=== PATIENT | male | born 1975 | race African-American/Black ===

== ENCOUNTER 2016-08-05 20:41 | Emergency (ER) | payer MEDICARE, MEDICAID, OTHER ==
[~2016-08-05 20:41] MED LIST: AMLO5TAB22 PO; DEPA500T PO; FERR324T4 PO; HALO10 PO; PHEN100 PO; SERO300T PO; SYNT75TA PO; TOPR50TA PO; ZYPR15TA PO
[2016-08-05 21:02] VITALS: BP 147/86; PULSE 99; RESP 18; TEMP 97.6; O2SAT 97
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
[2016-08-05 21:57] LABS: AUTOMATED NEUTROPHIL # 3.9 TH/MM3 (1.8-7.7); BASOPHIL % 0.6 % (0.0-2.0); EOSINOPHIL % 0.5 % (0.0-4.0); HEMATOCRIT 35.8 % (39.0-51.0); HEMO FLAGS DIFF FINAL; LYMPH % 17.9 % (9.0-44.0); MEAN CELL VOLUME 86.8 FL (80.0-100.0); MEAN CORPUSCULAR HEMOGLOBIN 30.1 PG (27.0-34.0); MEAN CORPUSCULAR HGB CONC 34.7 % (32.0-36.0); MONO % 12.2 % (0.0-8.0); NEUT % 68.8 % (16.0-70.0); PLATELET COUNT 188 TH/MM3 (150-450); RED BLOOD COUNT 4.12 MIL/MM3 (4.50-5.90); RED CELL DISTRIBUTION WIDTH 13.7 % (11.6-17.2); WHITE BLOOD COUNT 5.7 TH/MM3 (4.0-11.0)
[2016-08-05 22:05] LABS: ANION GAP 8 MEQ/L (5-15); AST (GOT) 18 U/L (15-37); BICARBONATE 25.6 MEQ/L (21.0-32.0); BLOOD UREA NITROGEN 12 MG/DL (7-18); CHLORIDE 106 MEQ/L (98-107); GLOMERULAR FILTRATION RATE 95 ML/MIN (>89); POTASSIUM 3.7 MEQ/L (3.5-5.1); SODIUM (NA) 140 MEQ/L (136-145)
[2016-08-05 22:10] LABS: ALKALINE PHOSPHATASE 56 U/L (45-117); ALT (GPT) 11 U/L (12-78); TOTAL BILIRUBIN ADULT 0.4 MG/DL (0.2-1.0)
[2016-08-05 22:12] LABS: ACETAMINOPHEN LESS THAN 2.0 MCG/ML (10.0-30.0)
[2016-08-05 22:18] VITALS: BP 129/77; PULSE 98; RESP 19; O2SAT 97
[2016-08-05 22:45] LABS: BLOOD, URINE NEG (NEG); GLUCOSE,URINE NEG (NEG); KETONE, URINE NEG (NEG); NITRITE,URINE NEG (NEG); URINE COLOR YELLOW (YELLW/STRAW)
[2016-08-05] MEDS ORDERED: PHENYTOIN SODIUM 100 MG CAP PO ONE (22:45)
[2016-08-05] MEDS ORDERED: DIVALPROEX DR 500 MG TABEC PO ONE (22:45)
[2016-08-05] MEDS ORDERED: QUEtiapine FUMARATE 300 MG TAB PO ONE (22:45)
[2016-08-05] MEDS ORDERED: HALOPERIDOL 10 MG TAB PO ONE (22:45)
[2016-08-05 22:46] LABS: AMPHETAMINE, URINE NEG (NEG); BARBITURATES, URINE NEG (NEG); COCAINE, URINE NEG (NEG)
[2016-08-05] MEDS ORDERED: QUET1TAB9 PO (22:47)
[2016-08-05] MEDS ORDERED: OLAN10TA PO (22:47)
[2016-08-05] MEDS ORDERED: BENZ2TAB PO (22:47)
[2016-08-05 22:52] LABS: COMMENT (UR) CULT NOT INDICATED; CULTURE IF INDICATED CULT NOT INDICATED
[2016-08-06 02:26] VITALS: BP 116/56; PULSE 109; RESP 18; O2SAT 98
[2016-08-06 06:44] VITALS: BP 118/71; PULSE 76; RESP 18; O2SAT 99
[2016-08-06 10:19] VITALS: BP 123/70; PULSE 112; RESP 18; O2SAT 98
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
[2016-08-06 14:00] VITALS: BP 138/67; PULSE 107; RESP 18
== END 2016-08-06 20:12 | disposition home or self-care (01) ==
LOC: NEPJ 20:41
DX: F20.9 Schizophrenia, unspecified (principal); F70 Mild intellectual disabilities; F41.9 Anxiety disorder, unspecified
CPT/HCPCS: 80053; 80164; 80185; 80307; 81001; 85025; 99283

== ENCOUNTER 2018-01-23 17:55 | Inpatient (IN) ==
--- NOTE | 2018-01-23 21:50 | ED ---
HPI General Chief Complaint: Psychiatric Symptoms Stated Complaint: psych eval Time Seen by Provider: 01/23/18 21:40 Source: patient Mode of arrival: ambulatory Limitations: no limitations History of Present Illness HPI Narrative: 42-year-old male requesting to see a psychiatrist for medication adjustment. Patient has history of schizophrenia and on medication. Patient states that he needs his medication to be adjusted. Patient denies any headache. Patient denies any chest pain or shortness of breath. Patient denies abdominal pain. Patient denies any focal weakness or numbness of the extremity. Patient denies any alcohol or drug abuse. Onset (ago): day(s) Duration: constant History of same: Yes Relieving factors: none Exacerbating factors: none Associated psychiatric symptoms: Reports none Associated symptoms: Reports denies other symptoms Treatments prior to arrival: Reports none Related Data Previous Rx's Medication Instructions Recorded benztropine 2 mg PO HS #30 tab 01/29/18 divalproex [Depakote ER] 1,000 mg PO BID #120 tab 01/29/18 haloperidol 10 mg PO BID #60 tab 01/29/18 olanzapine 15 mg PO BID #60 tab 01/29/18 quetiapine [Seroquel XR] 200 mg PO DAILY #30 tab 01/29/18 trazodone 100 mg PO HS #30 tab 01/29/18 Allergies Allergy/AdvReac Type Severity Reaction Status Date / Time No Known Allergies Uncoded 05/03/09 19:34 Review of Systems ROS: all other systems reviewed are negative PMFSH History History Provided By: Patient Social History Social History Substance History: No History of Abuse Second Hand Smoke Exposure: No Smoking Status: Never smoker How Often Do You Have a Drink Containing Alcohol: Never Recent Travel in [facility] within the Last 8 Weeks: No Recent Out of Country Travel within the Last 8 Weeks: No Exam Narrative Exam Narrative: GENERAL: Well-nourished, well-developed patient. SKIN: Focused skin assessment warm/dry. HEAD: Normocephalic. EYES: No scleral icterus. No injection or drainage. NECK: Supple, trachea midline. No JVD or lymphadenopathy. CARDIOVASCULAR: Regular rate and rhythm without murmurs, gallops, or rubs. RESPIRATORY: Breath sounds equal bilaterally. No accessory muscle use. GASTROINTESTINAL: Abdomen soft, non-tender, nondistended. MUSCULOSKELETAL: No cyanosis, or edema. BACK: Nontender without obvious deformity. No CVA tenderness. Neurologic exam: Patient is awake and alert oriented to place and person. Patient moves all extremity well. No obvious focal neurologic deficit. Course Initial Documented Vital Signs Temperature 97.8 F 01/23/18 18:05 Pulse Rate 100 H 01/23/18 18:05 Respiratory Rate 18 01/23/18 18:05 Blood Pressure 168/95 H 01/23/18 18:05 Pulse Oximetry 99 01/23/18 18:05 Last Documented Vital Signs Temperature 98.5 F 01/30/18 06:00 Pulse Rate 77 01/30/18 06:00 Respiratory Rate 15 01/30/18 06:00 Blood Pressure 112/58 L 01/30/18 06:00 Pulse Oximetry 98 01/30/18 06:00 Medical Decision Making MDM Narrative Medical decision making narrative: 42-year-old male requesting to see psychiatrist for medication adjustment. History of schizophrenia on medication. 23:25 PM. Patient is medically cleared for psychiatric evaluation. Medical Screen Exam Complete: Yes Emergency Medical Condition: Yes Differential Diagnosis Differential Diagnosis: Differential diagnosis including schizophrenia. Lab Data Lab results reviewed: Yes I reviewed the patient's lab results. Result diagrams: 01/23/18 20:15 01/25/18 07:39 Lab Results 01/23/18 01/23/18 01/24/18 Range/Units 20:15 20:15 06:00 WBC 4.7 (4.0-11.0) th/mm3 RBC 4.31 L (4.50-5.90) mil/mm3 Hgb 13.4 (13.0-17.0) gm/dL Hct 40.0 (39.0-51.0) % MCV 92.7 (80.0-100.0) fL MCH 31.0 (27.0-34.0) pg MCHC 33.4 (32.0-36.0) % RDW 13.4 (11.6-17.2) % Plt Count 145 L (150-450) th/mm3 MPV 9.2 (7.0-11.0) fL Neut % (Auto) 50.7 (16.0-70.0) % Lymph % (Auto) 37.8 (9.0-44.0) % [place] % (Auto) 9.4 H (0.0-8.0) % Eos % (Auto) 1.8 (0.0-4.0) % Baso % (Auto) 0.3 (0.0-2.0) % Neut # (Auto) 2.4 (1.8-7.7) th/mm3 Lymph # (Auto) 1.8 (1.0-4.8) th/mm3 [place] # (Auto) 0.4 (0.0-0.9) th/mm3 Eos # (Auto) 0.1 (0.0-0.4) th/mm3 Baso # (Auto) 0.0 (0.0-0.2) th/mm3 WBC Differential . Differential Comment Auto diff final Sodium 144 (136-145) meq/L Potassium 4.0 (3.5-5.1) meq/L Chloride 107 (98-107) meq/L Carbon Dioxide 29.8 (21.0-32.0) meq/L Anion Gap 7 (5-15) meq/L BUN 15 (7-18) mg/dL Creatinine 1.13 (0.60-1.30) mg/dL Estimated GFR 86 L (>89) mL/min Random Glucose 65 L (74-106) mg/dL Hemoglobin A1c (4.3-6.0) % Calcium 8.5 (8.5-10.1) mg/dL Total Bilirubin 0.3 (0.2-1.0) mg/dL AST 14 L (15-37) U/L ALT 10 L (12-78) U/L Alkaline Phosphatase 49 (45-117) U/L Total Protein 8.2 (6.4-8.2) g/dL Albumin 3.8 (3.4-5.0) g/dL Triglycerides (42-150) mg/dL Cholesterol (120-200) mg/dL LDL Cholesterol, Calc (0-99) mg/dL HDL Cholesterol (40.0-60.0) mg/dL Cholesterol/HDL Ratio Ratio TSH 3.030 (0.358-3.740) uIU/mL Urine Opiates Screen Neg (Neg) Ur Barbiturates Screen Neg (Neg) Valproic Acid (50-100) mcg/mL Ur Amphetamines Screen Neg (Neg) U Benzodiazepines Scrn Neg (Neg) Urine Cocaine Screen Neg (Neg) U Cannabinoids Screen Neg (Neg) 01/25/18 01/25/18 01/28/18 Range/Units 07:39 07:39 08:15 WBC (4.0-11.0) th/mm3 RBC (4.50-5.90) mil/mm3 Hgb (13.0-17.0) gm/dL Hct (39.0-51.0) % MCV (80.0-100.0) fL MCH (27.0-34.0) pg MCHC (32.0-36.0) % RDW (11.6-17.2) % Plt Count (150-450) th/mm3 MPV (7.0-11.0) fL Neut % (Auto) (16.0-70.0) % Lymph % (Auto) (9.0-44.0) % [place] % (Auto) (0.0-8.0) % Eos % (Auto) (0.0-4.0) % Baso % (Auto) (0.0-2.0) % Neut # (Auto) (1.8-7.7) th/mm3 Lymph # (Auto) (1.0-4.8) th/mm3 [place] # (Auto) (0.0-0.9) th/mm3 Eos # (Auto) (0.0-0.4) th/mm3 Baso # (Auto) (0.0-0.2) th/mm3 WBC Differential Differential Comment Sodium 140 (136-145) meq/L Potassium 4.2 (3.5-5.1) meq/L Chloride 104 (98-107) meq/L Carbon Dioxide 28.8 (21.0-32.0) meq/L Anion Gap 7 (5-15) meq/L BUN 14 (7-18) mg/dL Creatinine 0.98 (0.60-1.30) mg/dL Estimated GFR Greater than 89 (>89) mL/min Random Glucose 83 (74-106) mg/dL Hemoglobin A1c 5.2 (4.3-6.0) % Calcium 8.8 (8.5-10.1) mg/dL Total Bilirubin (0.2-1.0) mg/dL AST (15-37) U/L ALT (12-78) U/L Alkaline Phosphatase (45-117) U/L Total Protein (6.4-8.2) g/dL Albumin (3.4-5.0) g/dL Triglycerides 72 (42-150) mg/dL Cholesterol 134 (120-200) mg/dL LDL Cholesterol, Calc 60 (0-99) mg/dL HDL Cholesterol 59.4 (40.0-60.0) mg/dL Cholesterol/HDL Ratio 2.25 Ratio TSH (0.358-3.740) uIU/mL Urine Opiates Screen (Neg) Ur Barbiturates Screen (Neg) Valproic Acid 89 138 H* (50-100) mcg/mL Ur Amphetamines Screen (Neg) U Benzodiazepines Scrn (Neg) Urine Cocaine Screen (Neg) U Cannabinoids Screen (Neg) Discharge Plan Discharge Disposition Patient Disposition: 01 Discharge Home Discharge Condition Condition: Fair Discharge Order Discharge Orders: Discharge Order (Routine); Ordered 02/10/18 Ordered By: Toney Gómez Discharge Details Anticipated Discharge Date: 01/29/18 Physicians Team ED Provider: Toney Gómez Primary Care Provider: Primary Care Coleen Kirkpatrick Attending Provider: Asa Arboleda Status ED Status: Left Department Discharge Information Discharge Date/Time: 01/24/18 23:36
[2018-01-23 22:35] LABS: Baso % (Auto) 0.3 % (0.0-2.0); Eos # (Auto) 0.1 th/mm3 (0.0-0.4); Eos % (Auto) 1.8 % (0.0-4.0); Hemoglobin 13.4 gm/dL (13.0-17.0); Lymph # (Auto) 1.8 th/mm3 (1.0-4.8); Lymph % (Auto) 37.8 % (9.0-44.0); Mean Corpuscular HGB Conc 33.4 % (32.0-36.0); Mean Corpuscular Volume 92.7 fL (80.0-100.0); Mean Platelet Volume 9.2 fL (7.0-11.0); Mono # (Auto) 0.4 th/mm3 (0.0-0.9); Mono % (Auto) 9.4 % (0.0-8.0); Neut # (Auto) 2.4 th/mm3 (1.8-7.7); Neut % (Auto) 50.7 % (16.0-70.0); Platelet Count 145 th/mm3 (150-450); Red Blood Count 4.31 mil/mm3 (4.50-5.90); Red Cell Distribution Width 13.4 % (11.6-17.2); White Blood Count 4.7 th/mm3 (4.0-11.0)
[2018-01-23 22:51] LABS: Alanine Aminotransferase 10 U/L (12-78); Albumin 3.8 g/dL (3.4-5.0); Anion Gap 7 meq/L (5-15); Aspartate Aminotransferase 14 U/L (15-37); Blood Urea Nitrogen 15 mg/dL (7-18); Calcium 8.5 mg/dL (8.5-10.1); Carbon Dioxide 29.8 meq/L (21.0-32.0); Chloride 107 meq/L (98-107); Glomerular Filtration Rate 86 mL/min (>89); Glucose,Random 65 mg/dL (74-106); Sodium 144 meq/L (136-145)
[2018-01-23 23:01] LABS: Alkaline Phosphatase 49 U/L (45-117); Total Protein 8.2 g/dL (6.4-8.2)
[2018-01-24 06:20] LABS: Amphetamine Screen,Urine Neg (Neg); Barbiturate Screen,Urine Neg (Neg); Cannabinoid Screen,Urine Neg (Neg); Cocaine Screen,Urine Neg (Neg)
[2018-01-24 06:25] LABS: Opiate Screen,Urine Neg (Neg)
[2018-01-24] MEDS ORDERED: Acetaminophen 325 MG Tablet PO PRN (21:37)
[2018-01-24] MEDS ORDERED: Aluminum/Magnesium/Simethacone Susp 30 ML UDC PO PRN (21:37)
[2018-01-24] MEDS ORDERED: LORazepam 1 MG Tablet PO PRN (21:37)
[2018-01-24] MEDS ORDERED: QUETIAPINE 300 MG PO SCH (23:00)
[2018-01-24] MEDS ORDERED: traZODone 100 MG Tablet PO SCH (23:00)
[2018-01-24] MEDS: Divalproex 500 MG ER Tablet PO SCH (23:31)
[2018-01-24] MEDS: Benztropine 2 MG Tablet PO SCH (23:31)
[2018-01-24] MEDS: OLANZapine 15 MG Tablet PO SCH (23:32)
[2018-01-25 08:24] LABS: Cholesterol 134 mg/dL (120-200)
[2018-01-25 08:28] LABS: Chol/HDL Ratio 2.25 Ratio; HDL Cholesterol 59.4 mg/dL (40.0-60.0); LDL Cholesterol,Calculated 60 mg/dL (0-99); Triglycerides 72 mg/dL (42-150); Valproic Acid 89 mcg/mL (50-100)
[2018-01-25 08:36] LABS: Anion Gap 7 meq/L (5-15); Blood Urea Nitrogen 14 mg/dL (7-18); Calcium 8.8 mg/dL (8.5-10.1); Carbon Dioxide 28.8 meq/L (21.0-32.0); Chloride 104 meq/L (98-107); Glomerular Filtration Rate Greater Than 89 mL/min (>89); Glucose,Random 83 mg/dL (74-106); Potassium 4.2 meq/L (3.5-5.1); Sodium 140 meq/L (136-145)
--- NOTE | 2018-01-25 12:03 | P.HPPSY ---
Provisional Diagnosis Admission Date: January 24, 2018 21:07 [place] Schizophrenia chronic paranoid type Competence Certification of Person's Competence To Provide Express and Informed Consent I have personally examined Hasmukh Chacon, a person being served at [facility] on, January 25, 2018 1202. Express and informed consent means consent voluntarily given in writing, by a competent person, after sufficient explanation and disclosure of the subject matter involved to enable the person to make a knowing and willful decision without any element of force, fraud, deceit, duress, or other form of constraint or coercion. This person is 18 years of age or older, is not now known to be incompetent to consent to treatment with a guardian advocate, and does not have a health care surrogate or proxy currently making medical treatment decisions. I have found this person to be one of the following: []xxxx Competent to provide express and informed consent, as defined above, for voluntary admission to this facility and is competent to provide express and informed consent for treatment. He/she has the consistent capacity to make well reasoned, willful, and knowing decisions concerning his or her medical or mental health treatment. The person fully and consistently understands the purpose of the admission for examination/placement and is fully capable of personally exercising all rights assured under [place] Incompetent to provide express and informed consent to voluntary admission, and this is incompetent to provide express and informed consent to treatment. The person must be transferred to involuntary status and a petition for a guardian advocate filed with the Circuit Court. [] Refusing to provide express and informed consent to voluntary admission but is competent to provide express and informed consent for treatment. The person must be discharged or transferred to involuntary status. Form shall be completed within 24 hours of a person's arrival at the receiving facility and filed in the clinical record of each person: 1. Admitted on a voluntary basis 2. Permitted to provide express and informed consent to his/her own treatment 3. Allowed to transfer from involuntary to voluntary status 4. Prior to permitting a person to consent to his or her own treatment after having been previously found incompetent to consent to treatment. History of Present Illness Capacity: Has capacity History of Present Illness: Patient is a 42-year-old -Uk[place] male well known to us from multiple prior contacts. [facility] going back to the early 1999. In fact patient was seen by me in 2004. Patient comes today complaining of increased stress with his living situation and is desire to have his medications evaluated. Patient seen in the ED medically cleared urine toxicology negative Depakote blood level of 89 patient seen quietly in his room with nurse Margy and medical student Gael. Patient is alert oriented tall thin and slender clean and neat -Ukrainian white male he is calm cooperative is somewhat concrete and simple in his responses stating at this time he is living in a multigenerational situation with his great aunt's cousin and a few small children. It appears she has lived with his cousin before. It is because he was not looking for a new place for them to live. However patient has been getting into arguments with with his great aunt over the the programs being watched on TV. He feels that he is not being allowed to watch his programs. The 1 of his goals if going with the niece when an apartment is found is to get his own television. He has some childlike simplistic expectations of us being able to get him a TV. Patient denies voices or visions , denies suicidality homicidality. The times he appears to be responding to internal stimuli. Denies alcohol or drug use related to this. He states he has been compliant with his medications. Which is somewhat reflected in the Depakote blood level. He sees Dr. Amato through [facility] and says he has been compliant with medication and appointments. He also goes to the programming at [place] [facility] [place] Monday through Monday. And seems to enjoy that. Patient is on some degree of polypharmacy. Though with this patient's history of recidivism and chronic severe mental illness this regimen has been slowly developed over multiple prior contacts and hospitalizations. At this time patient does meet criteria for further inpatient psychiatric assessment on a voluntary basis. We will continue his medications no change at this time will be recheck his Depakote blood level over in a couple of days. Patient states she sleeps fairly well his appetite is good. Hopefully will be able to return him home to his family to follow up with [facility] - Inpatient Certification I certify that the inpatient services were ordered in accordance with Medicare regulations governing the order. This includes certification that hospital inpatient services are reasonable and necessary and in the case of services not specified as inpatient-only under 42 CFR 419.22(n), that they are appropriately provided as inpatient services in accordance to with the 2-midnight benchmark under 43 CFR 412.3(e) I certify that inpatient psychiatric hospital services are medically necessary. Evaluation and treatment and/or diagnostic testing are expected to improve the patient's condition. The patient needs on a daily basis, active treatment furnished directly by or requiring the supervision of inpatient psychiatric facility personnel. Estimated Total Length of Stay (Days): 5 Plans for Post Hospital Care: Home Review of Systems All other systems reviewed negative except as stated in [facility] - History History Provided By: Patient - Medical / Surgical Hx Neg / Unobtainable Surgical History: No Previous Surgery - Medical History Medical History: Medical History (Last Reviewed 01/25/18 @ 12:08 by Asa Arboleda MD) Autism Schizo-affective schizophrenia Schizophrenia - Social History I have reviewed the patient's Social History: Yes - Tobacco History Second Hand Smoke Exposure: No Smoking Status: Never smoker - Alcohol History How Often Do You Have a Drink Containing Alcohol: Never - Substance Use History Substance History: No History of Abuse - Travel History Recent Travel in the [facility] Within the Last 8 Weeks: No Recent Travel Out of the Country Within the Last 8 Weeks: No - Immunization History Tetanus Immunization: Unsure Hx Influenza Vaccine This Season: No Quality Measures - Psychiatric History Psychological trauma history: Patient denies Violence risk to others in the last 6 months: Low to moderate Violence risk to self in the last 6 months: Low to moderate - Substance Abuse History Drug or alcohol use in the past 12 months: Patient denies - Patient Strengths Patient's strengths (minimum of 2): Patient verbal able access healthcare is cooperative Medications and Allergies Active Medications: Active Medications Acetaminophen (Tylenol) 650 mg PO Q4H PRN PRN Reason: Pain 1-5 or Temp >101F Al Hydrox/Mg Hydrox/Simethicone (Mag-Al Plus Susp Liq) 30 ml PO Q6H PRN PRN Reason: DYSPEPSIA Al Hydroxide/Mg Hydroxide (Milk Of Magnesia Liq) 30 ml PO Q12H PRN PRN Reason: Mild Constipation Al Hydroxide/Mg Hydroxide (Milk Of Magnesia Liq) 30 ml PO Q12H PRN PRN Reason: Mild Constipation Benztropine Mesylate (Cogentin) 2 mg PO HS [facility] Last Admin: 01/24/18 23:31 Dose: 2 mg Diphenhydramine HCl (Benadryl) 50 mg PO HS PRN PRN Reason: INSOMNIA Divalproex Sodium (Depakote Er) 1,000 mg PO DAILY [facility] Divalproex Sodium (Depakote Er) 1,500 mg PO HS [facility] Last Admin: 01/24/18 23:31 Dose: 1,500 mg Divalproex Sodium (Depakote Er) 1,500 mg PO HS [facility] Haloperidol (Haldol) 10 mg PO BID [facility] Haloperidol (Haldol) 10 mg PO BID [facility] Hydroxyzine HCl (Atarax) 50 mg PO Q6H PRN PRN Reason: ANXIETY Nicotine (Habitrol 21 Mg Patch.24 Hr) 1 patch T-DERMAL DAILY [facility] Non-Formulary Medication (Benztropine) 2 mg PO HS [facility] Non-Formulary Medication (Depakote Er) 1,000 mg PO DAILY [facility] Non-Formulary Medication (Quetiapine) 200 mg PO DAILY [facility] Non-Formulary Medication (Quetiapine) 600 mg PO HS [facility] Olanzapine (Zyprexa) 15 mg PO BID [facility] Last Admin: 01/24/18 23:32 Dose: 15 mg Olanzapine (Zyprexa) 15 mg PO BID [facility] Patient Own Med- Quetiapine Sr 300 Mg Tablet 0 each PO HS [facility] Quetiapine Fumarate (Seroquel Xr) 200 mg PO DAILY [facility] Trazodone HCl (Desyrel) 100 mg PO HS [facility] Last Admin: 01/24/18 23:31 Dose: 100 mg Trazodone HCl (Desyrel) 100 mg PO HS [facility] Allergies Allergy/AdvReac Type Severity Reaction Status Date / Time No Known Allergies Uncoded 05/03/09 19:34 Home Medications Medication Instructions Recorded Confirmed Type Depakote ER 1,000 mg DAILY 01/24/18 01/24/18 History benztropine 2 mg PO HS 01/24/18 01/24/18 History divalproex [Depakote ER] 1,500 mg PO HS 01/24/18 01/24/18 History haloperidol 10 mg PO BID 01/24/18 01/24/18 History olanzapine [Zyprexa] 15 mg PO BID 01/24/18 01/24/18 History quetiapine [Seroquel XR] 200 mg PO DAILY 01/24/18 01/24/18 History quetiapine [Seroquel XR] 600 mg PO HS 01/24/18 01/24/18 History trazodone 100 mg PO HS 01/24/18 01/24/18 History Results - Labs CBC & Chem 7: 01/23/18 20:15 01/25/18 07:39 Labs: Laboratory Results - last 24 hr 01/25/18 07:39 Sodium 140 Potassium 4.2 Chloride 104 Carbon Dioxide 28.8 Anion Gap 7 BUN 14 Creatinine 0.98 Estimated GFR Greater than 89 Random Glucose 83 Calcium 8.8 Triglycerides 72 Cholesterol 134 LDL Cholesterol, Calc 60 HDL Cholesterol 59.4 Cholesterol/HDL Ratio 2.25 Valproic Acid 89 Exam Vital signs: Vital Signs 01/24/18 16:55 01/24/18 18:40 01/24/18 23:20 Temperature 98.0 F Pulse Rate 89 85 85 Respiratory Rate 20 20 16 Blood Pressure 164/88 H 151/87 H 125/80 Pulse Oximetry 100 100 100 01/24/18 23:27 01/25/18 06:00 Temperature 97.8 F 98.2 F Pulse Rate 93 H 87 Respiratory Rate 18 16 Blood Pressure 126/18 L 114/62 Pulse Oximetry 98 Intake & Output 01/24/18 01/25/18 01/25/18 18:59 06:59 18:59 Weight 86 kg Other: Weight On Admission 86 kg Narrative: Patient seen in his room he is in no acute distress, patient no respiratory distress, no complaints of chest pain or abdominal pain. Patient moving all 4 extremities without difficulty Mental Status Examination Appearance: Appropriate Consciousness: Alert Orientation: Person, Place, Date/Time Motor Activity: Normal gait Speech: Unremarkable (Somewhat childlike) Language: Adequate Fund of Knowledge: Adequate Attention and Concentration: Adequate (Poor) Memory: Impaired Mood: Other (Euthymic to mildly irritable) Affect: Other (Good range and intensity) Thought Content: Appropriate (Somewhat concrete) Hallucination Type: None (There appears to the use somewhat concrete and childlike) Delusion Type: None Suicidal Ideation: No Suicidal Plan: No Suicidal Intention: No Homicidal Ideation: No Homicidal Plan: No Homicidal Intention: No Insight: Poor Judgment: Poor Assessment and Plan - Plan Plan: Estimated LOS: [] days Patient is showing mild psychotic features though overall is calm and cooperative. Having little insight into his quality with his relationship with the various family members with whom he lives especially related television privileges and ownership Justification for Continued Inpatient Stay: At this time patient would decompensate a place to a lower level of care Discharge Planning: Probably to return home Request Healthcare Surrogate/Guardian Advocate?: No
[2018-01-25 12:22] LABS: Hemoglobin A1c 5.2 % (4.3-6.0)
[2018-01-25] MEDS: Divalproex 500 MG ER Tablet PO SCH ×2 (13:51→21:41)
[2018-01-25] MEDS: QUETIAPINE 50 MG PO SCH (13:51)
[2018-01-25] MEDS: OLANZapine 15 MG Tablet PO SCH ×2 (13:52→21:42)
[2018-01-25] MEDS ORDERED: QUETIAPINE 300 MG PO SCH (21:00)
[2018-01-25] MEDS ORDERED: BENZTROPINE 2 MG PO SCH (21:00)
[2018-01-25] MEDS ORDERED: OLANZapine 15 MG Tablet PO SCH (21:00)
[2018-01-25] MEDS ORDERED: QUETIAPINE 600 MG PO SCH (21:00)
[2018-01-25] MEDS ORDERED: Divalproex 500 MG ER Tablet PO SCH (21:00)
[2018-01-25] MEDS: traZODone 100 MG Tablet PO SCH (21:42)
[2018-01-25] MEDS: Benztropine 2 MG Tablet PO SCH (21:42)
[2018-01-26] MEDS ORDERED: DEPAKOTE 1000 MG PO SCH (09:00)
[2018-01-26] MEDS ORDERED: QUETIAPINE 200 MG PO SCH (09:00)
[2018-01-26] MEDS: Divalproex 500 MG ER Tablet PO SCH ×2 (10:07→21:32)
[2018-01-26] MEDS: OLANZapine 15 MG Tablet PO SCH ×2 (10:07→21:35)
[2018-01-26] MEDS: QUETIAPINE 50 MG PO SCH (10:07)
--- NOTE | 2018-01-26 10:21 | P.PNPSY ---
Subjective Remarks: Patient seen in day room with floor staff, patient is alert and oriented calm cooperative with me though at times somewhat childlike. This is talked with his grandmother. Chart reviewed. Patient compliant medication. He states his grandmother is willing to get him a TV. That makes him happy. Today he denies suicidality homicidality voice or visions. For now continue treatment Review of Systems All other systems reviewed negative except as stated in HPI Mental Status Examination Appearance: Appropriate Consciousness: Alert Orientation: Person, Place, Date/Time Motor Activity: Normal gait Speech: Unremarkable (Somewhat childlike) Language: Adequate Fund of Knowledge: Adequate Attention and Concentration: Adequate (Poor) Memory: Impaired Mood: Other (Euthymic to mildly irritable) Affect: Other (Good range and intensity) Thought Content: Appropriate (Somewhat concrete) Hallucination Type: None (There appears to the use somewhat concrete and childlike) Delusion Type: None Suicidal Ideation: No Suicidal Plan: No Suicidal Intention: No Homicidal Ideation: No Homicidal Plan: No Homicidal Intention: No Insight: Poor Judgment: Poor Assessment and Plan - Assessment (1) Paranoid type schizophrenia, chronic state Code(s): F20.0 - Paranoid schizophrenia Status: Acute - Plan Plan: Patient somewhat calmer and focused today x2 remained somewhat childlike. Compliant medication. For now continue treatment Justification for Continued Inpatient Stay: At this time patient may decompensate a place to a lower level of care Discharge Planning: Probable return home with family Request Healthcare Surrogate/Guardian Advocate?: No
[2018-01-26] MEDS: Benztropine 2 MG Tablet PO SCH (21:31)
[2018-01-26] MEDS: traZODone 100 MG Tablet PO SCH (21:34)
[2018-01-27] MEDS: QUETIAPINE 50 MG PO SCH (09:35)
[2018-01-27] MEDS: OLANZapine 15 MG Tablet PO SCH ×2 (09:35→21:41)
[2018-01-27] MEDS: Divalproex 500 MG ER Tablet PO SCH (09:35)
--- NOTE | 2018-01-27 14:58 | P.PNPSY ---
Subjective Remarks: Reviewed electronic medical records and discussed case with staff. Follow-up was conducted in the patient's room with LENNY Schultz present. He was found lying on the bed with the covers over his head sound asleep he woke to physical stimuli. His nurse reports he has been compliant with his medications and had no behavioral disturbances. He states that he feels "all right". States that he still tired. Reports that he is eating okay. Patient denies any complaints at this time. Mental Status Examination Appearance: Appropriate Consciousness: Alert Orientation: Person, Place, Date/Time Motor Activity: Normal gait Speech: Unremarkable (Somewhat childlike) Language: Adequate Fund of Knowledge: Adequate Attention and Concentration: Adequate (Poor) Memory: Impaired Mood: Other (Euthymic to mildly irritable) Affect: Other (Good range and intensity) Thought Content: Appropriate (Somewhat concrete) Hallucination Type: None (There appears to the use somewhat concrete and childlike) Delusion Type: None Suicidal Ideation: No Suicidal Plan: No Suicidal Intention: No Homicidal Ideation: No Homicidal Plan: No Homicidal Intention: No Insight: Poor Judgment: Poor Assessment and Plan - Assessment (1) Paranoid type schizophrenia, chronic state Code(s): F20.0 - Paranoid schizophrenia Status: Acute - Plan Plan: Patient will be reevaluated Monday by the attending psychiatrist. Continue with current treatment plan. Justification for Continued Inpatient Stay: Moving this patient to a less restrictive environment would likely result in decompensation. Request Healthcare Surrogate/Guardian Advocate?: No
[2018-01-27] MEDS: traZODone 100 MG Tablet PO SCH (21:40)
[2018-01-27] MEDS: Benztropine 2 MG Tablet PO SCH (21:41)
[2018-01-28] MEDS: Divalproex 500 MG ER Tablet PO SCH ×3 (01:57→21:12)
[2018-01-28] MEDS: QUETIAPINE 50 MG PO SCH (08:57)
[2018-01-28] MEDS: OLANZapine 15 MG Tablet PO SCH ×2 (08:58→21:13)
--- NOTE | 2018-01-28 13:05 | P.PNPSY ---
Subjective Remarks: Reviewed electronic medical records and discussed case with staff. Follow-up was conducted in dayroom. Patient is medication compliant. Nursing reports no behavioral concerns. Valporic Acid level is high at 138. Patient currently taking Depakote 1,000 mg daily and 1,500 mg qhs. Will decrease the Depakote by 500 mg at night and order a repeat Valporic Acid. Patient eating and sleeping well. Denies SI/HI. Review of Systems All other systems reviewed negative except as stated in HPI Mental Status Examination Appearance: Appropriate Consciousness: Alert Orientation: Person, Place, Date/Time Motor Activity: Normal gait Speech: Unremarkable (Somewhat childlike) Language: Adequate Fund of Knowledge: Adequate Attention and Concentration: Adequate (Poor) Memory: Impaired Mood: Other (Euthymic to mildly irritable) Affect: Other (Good range and intensity) Thought Content: Appropriate (Somewhat concrete) Hallucination Type: None (There appears to the use somewhat concrete and childlike) Delusion Type: None Suicidal Ideation: No Suicidal Plan: No Suicidal Intention: No Homicidal Ideation: No Homicidal Plan: No Homicidal Intention: No Insight: Poor Judgment: Poor Assessment and Plan - Assessment (1) Paranoid type schizophrenia, chronic state Code(s): F20.0 - Paranoid schizophrenia Status: Acute - Plan Plan: Patient will be reevaluated Monday by the attending psychiatrist. Continue with current treatment plan. Justification for Continued Inpatient Stay: Moving patient to a less restrictive environment may result in his decompensation. Request Healthcare Surrogate/Guardian Advocate?: No
[2018-01-28] MEDS: Benztropine 2 MG Tablet PO SCH (21:12)
[2018-01-28] MEDS: traZODone 100 MG Tablet PO SCH (21:13)
[2018-01-29] MEDS: QUETIAPINE 50 MG PO SCH (09:08)
[2018-01-29] MEDS: Divalproex 500 MG ER Tablet PO SCH ×2 (09:08→21:14)
[2018-01-29] MEDS: OLANZapine 15 MG Tablet PO SCH ×2 (09:09→21:14)
--- NOTE | 2018-01-29 12:07 | P.DSPSY ---
Psychiatry Discharge Summary Inpatient Psychiatric care?: Yes Advance Directives: No Mental Health Advance Directive: No Health Care Proxy: No - Admission Admission Date: January 24, 2018 21:07 - Admission Diagnosis (1) Paranoid type schizophrenia, chronic state Code(s): F20.0 - Paranoid schizophrenia Brief History: Patient is a 42-year-old -Monegasque male well known to us from multiple prior contacts. [facility] going back to the early 1999. In fact patient was seen by me in 2004. Patient comes today complaining of increased stress with his living situation and is desire to have his medications evaluated. Patient seen in the ED medically cleared urine toxicology negative Depakote blood level of 89 patient seen quietly in his room with nurse Margy and medical student Gael. Patient is alert oriented tall thin and slender clean and neat -[place]onegasque white male he is calm cooperative is somewhat concrete and simple in his responses stating at this time he is living in a multigenerational situation with his great aunt's cousin and a few small children. It appears she has lived with his cousin before. It is because he was not looking for a new place for them to live. However patient has been getting into arguments with with his great aunt over the the programs being watched on TV. He feels that he is not being allowed to watch his programs. The 1 of his goals if going with the niece when an apartment is found is to get his own television. He has some childlike simplistic expectations of us being able to get him a TV. Patient denies voices or visions , denies suicidality homicidality. The times he appears to be responding to internal stimuli. Denies alcohol or drug use related to this. He states he has been compliant with his medications. Which is somewhat reflected in the Depakote blood level. He sees Dr. Amato through [facility] and says he has been compliant with medication and appointments. He also goes to the programming at [place] [facility] [place] Monday through Monday. And seems to enjoy that. Patient is on some degree of polypharmacy. Though with this patient's history of recidivism and chronic severe mental illness this regimen has been slowly developed over multiple prior contacts and hospitalizations. At this time patient does meet criteria for further inpatient psychiatric assessment on a voluntary basis. We will continue his medications no change at this time will be recheck his Depakote blood level over in a couple of days. Patient states she sleeps fairly well his appetite is good. Hopefully will be able to return him home to his family to follow up with [facility] Tobacco Use In Past 30 Days: No How Often Do You Have a Drink Containing Alcohol: Never Hospital Course: Patient's hospital course was uneventful, he was no behavioral problems. His cognitive issues remain consistent though he also remained compliant with his medications. He denies suicidality homicidality he is vague about voices. He has had conversations with his family they are willing to discuss with him and his own TV for his bedroom. At this time patient is consistent in denying suicidality or homicidality. He is compliant with medications shows a willingness to continue compliance as an outpatient follow-up with Jeffrey Cristobal at [facility]. Thus I feel patient reached maximum benefit of this hospitalization. Will be discharged today with Rx times 1 month - Discharge Discharge Date: 01/29/18 - Discharge Diagnosis (1) Paranoid type schizophrenia, chronic state Diagnosis: Principal Code(s): F20.0 - Paranoid schizophrenia Status: Acute Discharge Disposition: Home - Discharge Instructions Discharge Diet: Regular Diet Activities You Can Perform: Regular- No Restrictions - Discharge Time > 30 minutes Mental Status Examination Appearance: Appropriate Consciousness: Alert Orientation: Person, Place, Date/Time Motor Activity: Normal gait Speech: Unremarkable (Somewhat childlike) Language: Adequate Fund of Knowledge: Adequate Attention and Concentration: Adequate (Poor) Memory: Impaired Mood: Other (Euthymic to mildly irritable) Affect: Other (Good range and intensity) Thought Content: Appropriate (Somewhat concrete) Hallucination Type: None (There appears to the use somewhat concrete and childlike) Delusion Type: None Suicidal Ideation: No Suicidal Plan: No Suicidal Intention: No Homicidal Ideation: No Homicidal Plan: No Homicidal Intention: No Insight: Poor Judgment: Poor Discharge/Advance Care Plan - Results Vital Signs: Last Vital Signs Temp 98.1 F 01/29/18 04:50 Pulse 73 01/29/18 04:50 Resp 16 01/29/18 04:50 BP 105/58 L 01/29/18 04:50 Pulse Ox 99 01/29/18 04:50 Lab Results: Laboratory Results Hemoglobin A1c 5.2 % (4.3-6.0) 01/25/18 07:39 Triglycerides 72 mg/dL (42-150) 01/25/18 07:39 Cholesterol 134 mg/dL (120-200) 01/25/18 07:39 LDL Cholesterol, Calc 60 mg/dL (0-99) 01/25/18 07:39 HDL Cholesterol 59.4 mg/dL (40.0-60.0) 01/25/18 07:39 TSH 3.030 uIU/mL (0.358-3.740) 01/23/18 20:15 Valproic Acid 138 mcg/mL (50-100) H* 01/28/18 08:15 Summary of Procedures: None done Pending Results: None - Medications Number of antipsychotic medications at discharge: 3 Appropriate use of more than 1 antipsychotic med: Doc plan:prev multi med use- monotherapy taper/cross-taper in progress - Discharge Care Plan Goals to Promote Your Health: * To prevent worsening of your condition and complications * To maintain your health at the optimal level Directions to Meet Your Goals: Take your medications as prescribed Follow your dietary instruction Follow activity as directed Keep your appointments as scheduled Take your immunizations and boosters as scheduled If your symptoms worsen call your PCP, if no PCP go to Urgent Care Center or Emergency Room For 07/11 questions related to your inpatient stay or results of tests pending at discharge, please contact Dr. Asa Arboleda MD at Smoking is Dangerous to Your Health. Avoid second hand smoking
--- NOTE | 2018-01-29 13:56 | P.TTN ---
- Patient Problems Problems: 1. Discharge planning 2. Medication compliance 3. Knowledge deficit 4. Lack of coping skills - Progress Toward Goals Provider Present: Dr. Kalyn Arboleda, Dr. Blanca Xiong Provider Input: Follow up at [facility] Discharge today 01/29/18 Nurse(s) Present: Mazin GALVEZ Nurse Input: 01/29/18: med Compliant, Treatment Cooperative. Psychiatric Counselors Present: Kevon Perkins Jr., [facility], Zee Noguera, [facility] Psychiatric Therapist Input: 01/29/18: Cooperative, motivated for treatment. Group Spec/RT/OT/SIERRA Present: MEHUL Lara, Sami Frey, OT Group Spec/RT/OT/SIERRA Input: 01/29/18: Patient attends the group activities with good participation. needs some direction. Pleasant and cooperative. - Discharge Plan Discharge today 01/29/18 with follow up with [facility]. - Documentation Scribe: Mel De Jesus Teaching Recipient: Patient
[2018-01-29] MEDS: Benztropine 2 MG Tablet PO SCH (21:14)
[2018-01-29] MEDS: traZODone 100 MG Tablet PO SCH (21:15)
[2018-01-30 06:13] VITALS: BP 112/58; PULSE 77; RESP 15; TEMP 98.5; O2SAT 98
[2018-01-30] MEDS: QUETIAPINE 50 MG PO SCH (08:51)
[2018-01-30] MEDS: Divalproex 500 MG ER Tablet PO SCH (08:52)
[2018-01-30] MEDS: OLANZapine 15 MG Tablet PO SCH (08:53)
--- NOTE | 2018-01-30 12:57 | P.PNPSY ---
Subjective Remarks: Patient seen today in his room laying in his bed with the covers over his head. Patient seen with medical student Gael. Chart reviewed. Patient compliant medication. Patient's discharge failed yesterday because family member did not arrive to transport patient home. Thus discharge has been canceled we will continue the admission until we can verify appropriate placement transportation is in effect. Patient calm cooperative coping with this continues to deny suicidality voices or visions Review of Systems All other systems reviewed negative except as stated in HPI Mental Status Examination Appearance: Appropriate Consciousness: Alert Orientation: Person, Place, Date/Time Motor Activity: Normal gait Speech: Unremarkable (Somewhat childlike) Language: Adequate Fund of Knowledge: Adequate Attention and Concentration: Adequate (Poor) Memory: Impaired Mood: Other (Euthymic to mildly irritable) Affect: Other (Good range and intensity) Thought Content: Appropriate (Somewhat concrete) Hallucination Type: None (There appears to the use somewhat concrete and childlike) Delusion Type: None Suicidal Ideation: No Suicidal Plan: No Suicidal Intention: No Homicidal Ideation: No Homicidal Plan: No Homicidal Intention: No Insight: Poor Judgment: Poor Assessment and Plan - Assessment (1) Paranoid type schizophrenia, chronic state Code(s): F20.0 - Paranoid schizophrenia Status: Acute - Plan Plan: Cancel discharge due to lack of transportation. Patient to continue with all orders treatment and medications. Continue to work with family to arrange proper transportation Justification for Continued Inpatient Stay: At this time patient would decompensate if not placed in an appropriate level of care Discharge Planning: To be determined hopefully home with family member Request Healthcare Surrogate/Guardian Advocate?: No
== END 2018-01-30 18:10 | disposition home or self-care (01) ==
LOC: NEPD 17:55 → NEDA 01-24 21:07 → H260 01-24 23:30
PROVIDERS: ADMIT Psychiatry & Neurology Psychiatry; ATTEND Psychiatry & Neurology Psychiatry